=== PATIENT | female | born 1990 | race Caucasian/White ===

== ENCOUNTER 2018-07-04 18:40 | Emergency (ER) | payer OTHER ==
[2018-07-04] MEDS ORDERED: SODIUM CHLORIDE 0.9% 500 ML INFUS.BAG IV ONE (18:44)
[2018-07-04 18:58] VITALS: BP 115/86; PULSE 69; TEMP 98.3; BMI 24.9
[2018-07-04] MEDS ORDERED: ONDANSETRON 4 MG/2 ML VIAL ONE (19:29)
[2018-07-04] MEDS ORDERED: ONDANSETRON 4 MG/2 ML VIAL IVPB ONE (19:31)
--- NOTE | 2018-07-04 19:32 | PDOC ---
History of Present Illness - General Chief Complaint: Nausea/Vomiting Stated Complaint: NAUSEA, VOMITING Time Seen by Provider: 07/04/18 19:21 History Source: Patient Exam Limitations: No Limitations - History of Present Illness Travel History: No Initial Comments: This patient is a 27 year old female with PMHx of iron-defieciency anemia, hemmoroids, who presents with nausea and vomitting after a night of binge drinking. Patient states that she does not normally drink alcohol but drank 5 shots of Vodka. She states that she intially felt fine but began vomiting (nbnb ) once she got home around 10:30. She went to sleep and woke vomited 3-4 more times las night. Today she states she vomited once this morning and again at 3: 00pm (clear liquids). She states she ate a bagel on her way to the ER and was able to keep it down. She also endorses a headache. LMP 06/04/18 (states she gets irregular periods due to stress). Denies any diarrhea, fever, chest pain, back pain, or dysuria, Denies any allergies. Past History - Past Medical History Allergies/Adverse Reactions: Allergies Allergy/AdvReac Type Severity Reaction Status Date / Time No Known Allergies Allergy Verified 07/04/18 18:41 Home Medications: Ambulatory Orders Ondansetron [Zofran Odt -] 4 mg SL BID PRN #14 od.tablet 07/04/18 COPD: No Other medical history: DENIES - Suicide/Smoking/Psychosocial Hx Smoking History: Never smoked Have you smoked in the past 12 months: No Number of Cigarettes Smoked Daily: 0 Information on smoking cessation initiated: No Hx Alcohol Use: No Drug/Substance Use Hx: No Substance Use Type: None Review of Systems - Review of Systems Able to Perform ROS?: Yes Comments:: CONSTITUTIONAL: No reported: Fever, Chills, Diaphoresis, Generalized Weakness, Malaise, Loss of Appetite HEENT: No reported: Rhinorrhea, Nasal Congestion, Throat Pain, Throat Swelling, Difficulty Swallowing, Mouth Swelling, Ear Pain, Eye Pain, Visual Changes CARDIOVASCULAR: No reported: Chest Pain, Syncope, Palpitations, Irregular Heart Rate, Lightheadedness, Peripheral Edema RESPIRATORY: No reported: Cough, Shortness of Breath, SOB with Exertion, Orthopnea, Wheezing , Stridor, Hemoptysis GASTROINTESTINAL: Reported: Nausea, Vomiting No reported: Abdominal pain, Abdominal Distension, Diarrhea, Constipation, Melena, Hematochezia GENITOURINARY: No reported: Dysuria, Frequency, Urgency, Hesitancy, Flank Pain, Genital Pain MUSCULOSKELETAL: No reported: Myalgia, Arthralgia, Joint Swelling, Back pain, Neck Pain SKIN: No reported: Rash, Itching, Pallor HEMEATOLOGIC/IMMUNOLOGIC: No reported: Easy Bleeding, Easy Bruising, Lymphadenopathy, Frequent infections ENDOCRINE: No reported: Unexplained Weight Gain, Unexplained Weight Loss, Heat Intolerance , Cold Intolerance NEUROLOGIC: Reported: Headache No reported: Focal Weakness, Paresthesias, Vertigo, Lightheadedness, Unsteady Gait, Seizure, Mental Status Changes, Incontinence PSYCHIATRIC: No reported: Anxiety, Depression *Physical Exam - Vital Signs Last Vital Signs Temp Pulse Resp BP Pulse Ox 98.3 F 69 18 115/86 100 07/04/18 18:40 02 18:40 07/04/18 18:40 07/04/18 18:40 07/04/18 18:40 - Physical Exam Comments: GENERAL: The patient is awake, alert, and fully oriented, Nontoxic - in no acute distress. HEAD: Normocephalic, atraumatic. EYES: extraocular movements intact, sclera anicteric, conjunctiva clear. ENT: Normal voice, mildly dry mucous membranes. NECK: Normal range of motion, supple LUNGS: Breath sounds equal, clear to auscultation bilaterally. No wheezes, no rhonchi, no rales. HEART: Regular rate and rhythm, without murmur, rub or gallop. ABDOMEN: Soft, nontender, No guarding, no rebound.No CVA tenderness EXTREMITIES: Normal range of motion, no edema. NEUROLOGICAL: No facial assymetry, Normal speech, PSYCH: Normal mood, normal affect. SKIN: Warm, Dry, normal turgor, Moderate Sedation - Procedure Monitoring Vital Signs: Procedure Monitoring Vital Signs Temperature 98.3 F 07/04/18 18:40 Pulse Rate 69 07/04/18 18:40 Respiratory Rate 18 07/04/18 18:40 Blood Pressure 115/86 07/04/18 18:40 O2 Sat by Pulse Oximetry (%) 100 07/04/18 18:40 ED Treatment Course - ADDITIONAL ORDERS Additional order review: Laboratory Results 07/04/18 18:51 Urine HCG, Qual Negative - Medications Given in the ED: ED Medications Discontinued Medications Generic Name Dose Route Start Last Admin Trade Name Libra PRN Reason Stop Dose Admin Sodium Chloride 1,000 ml 07/04/18 18:44 07/04/18 18:55 Normal Saline - IV 07/04/18 18:45 1,000 ml ONCE ONE Administration Medical Decision Making - Medical Decision Making 07/04/18 19:30 27y F hx of anemia presnts with nausea/vomiting since alst night after drinking severa lshots last night. pt jossy any abd pain, fever/chills, dysuria, hematuria, endorses multple episodes of nbnb vomiting w/o diarrhea. tolerated a bagel prior to arrival on exam pt in no distress, apperas well IV was placed, pt given iv hydration zofran for nausae will defer labs and reassess & po challenge 07/04/18 20:13 pt feeling inmpropved tolerating oral itnake will dc with supportive care at [facility] return precautions were discussed *DC/Admit/Observation/Transfer Diagnosis at time of Disposition: Nausea & vomiting Qualifiers: Vomiting type: unspecified Vomiting Intractability: non-intractable Qualified Code(s): R11.2 - Nausea with vomiting, unspecified - Discharge Dispostion Disposition: HOME Condition at time of disposition: Improved Decision to Admit order: No - Prescriptions Prescriptions: Ondansetron [Zofran Odt -] 4 mg SL BID PRN #14 od.tablet PRN Reason: Nausea - Referrals Referrals: Spencer Meadows MD [Staff Physician] - - Patient Instructions Printed Discharge Instructions: DI for Nausea -- Adult Additional Instructions: Return to the emergency department immediately with ANY new, persistent or worsening symptoms including any abdominal pain, fevers, inability to tolerate oral intake, fevers or any other concerns. Stay well hydrated. Yony zofran as needed for nausea You MUST call and follow up with your doctor in 3-4 days . Your emergency department visit is not complete without a followup with your doctor for reevaluation. Please make sure your doctor reviews the results of your emergency evaluation. Print Language: SOUTH SUDANESE - Post Discharge Activity
[2018-07-04] MEDS ORDERED: ACETAMINOPHEN 325 MG TABLET (FP) PO ONE (20:13)
[2018-07-04] MEDS ORDERED: ACETAMINOPHEN 325 MG TABLET (FP) ONE (20:15)
== END 2018-07-04 20:40 | disposition home or self-care (01) ==
LOC: FER 18:40
PROC: 3E0337Z Introduction of Electrolytic and Water Balance Substance into Peripheral Vein, Percutaneous Approach (ICD-10-PCS; principal; 2018-07-04)
PROC: 3E033GC Introduction of Other Therapeutic Substance into Peripheral Vein, Percutaneous Approach (ICD-10-PCS; 2018-07-04)
DX: R11.2 Nausea with vomiting, unspecified (principal)
CPT/HCPCS: 84703; 96374; 99283-25

== ENCOUNTER 2020-01-07 13:47 | Emergency (ER) | payer OTHER ==
--- NOTE | 2020-01-07 13:58 | TELE ---
HPI Do you have fever,cough or shortness of breath?: No - General Reason For Visit: COVID TESTING History Source: Patient Exam Limitations: No Limitations Past History - Medical History Allergies/Adverse Reactions: Allergies Allergy/AdvReac Type Severity Reaction Status Date / Time No Known Allergies Allergy Verified 07/04/18 18:41 Home Medications: Ambulatory Orders Ondansetron [Zofran Odt -] 4 mg SL BID PRN #14 od.tablet 07/04/18 COPD: No - Psycho-Social/Smoking History Smoking History: Never smoked Have you smoked in the past 12 months: No Number of Cigarettes Smoked Daily: 0 - Medical Decision Making 01/07/20 13:57 29-year-old female no significant past medical history requesting COVID testing for recent call for positive exposure. Patient is asymptomatic. Denies short Physical exam deferred secondary to an inability to video chat Patient to proceed to [facility] for [facility] testing instructions below given via [facility] Pt instructed to self isolate until results given To obtain your prescribed COVID testing, go to the [facility] at [address] [place] [address]. Proceed across the parking lot to the GREEN parking spaces with COVID Testing signs next to the Emergency Room entrance. Call [phone] and our team will complete your testing. Thank you for using our Virtual Urgent Care service! Discharge Diagnosis at time of Disposition: Counseled about COVID-19 virus infection - Referrals - Patient Instructions Discharge Instructions: [facility]-Coronavirus Instructions - Discharge Disposition: HOME Condition at time of Disposition: Stable
== END 2020-01-07 13:58 | disposition home or self-care (01) ==
LOC: JVIRT 13:47
DX: Z20.828 Contact with and (suspected) exposure to other viral communicable diseases (principal)
CPT/HCPCS: 36415; 86769; 99441-95; U0003

== ENCOUNTER 2020-09-16 18:06 | Emergency (ER) | payer OTHER ==
[2020-09-17 10:07] LABS: SARS-CoV-2 NAA Not Detected (Not Detected)
== END 2020-09-16 19:59 | disposition home or self-care (01) ==
LOC: JVIRT 18:06
DX: Z11.52 Encounter for screening for COVID-19 (principal)
CPT/HCPCS: C9803; G2251-GT; U0003; U0005